=== PATIENT | male | born 1990 | race Caucasian/White ===

== ENCOUNTER 2020-06-16 05:22 | Emergency (ER) | payer SELFPAY ==
[~2020-06-16] VITALS: Ht 177.8 cm; Wt 90.9 kg
[2020-06-16] MEDS ORDERED: PERTUSS(ACELL),DIPH,TET VAC/PF 0.5 ML SYRINGE IM. ONE (07:15)
[2020-06-16 10:32] VITALS: BP 138/78
== END 2020-06-16 10:39 | disposition home or self-care (01) ==
LOC: EMS 05:27
DX: S02.31XA Fracture of orbital floor, right side, initial encounter for closed fracture (principal); S05.41XA Penetrating wound of orbit with or without foreign body, right eye, initial encounter; S30.1XXA Contusion of abdominal wall, initial encounter; F17.210 Nicotine dependence, cigarettes, uncomplicated; Y04.2XXA Assault by strike against or bumped into by another person, initial encounter; Y93.89 Activity, other specified; Y92.89 Other specified places as the place of occurrence of the external cause; Y99.8 Other external cause status
CPT/HCPCS: 12011; 70450; 70486; 74176; 90471; 90715; 99285

== ENCOUNTER 2020-07-21 10:01 | Emergency (ER) | payer MEDICAID ==
[~2020-07-21] VITALS: Ht 177.8 cm; Wt 94.5 kg
[2020-07-21 11:23] VITALS: BP 149/80
== END 2020-07-21 11:36 | disposition home or self-care (01) ==
LOC: EMS 10:03
DX: Z02.79 Encounter for issue of other medical certificate (principal); F17.210 Nicotine dependence, cigarettes, uncomplicated
CPT/HCPCS: 99281; Z7502